=== PATIENT | male | born 2000 | race African-American/Black ===

== ENCOUNTER 2023-03-09 16:13 | Emergency (ER) | payer OTHER ==
[2023-03-09 16:29] VITALS: BP 134/84; PULSE 56; RESP 18; TEMP 98; BMI 22.7
== END 2023-03-09 17:00 | disposition home or self-care (01) ==
LOC: FER 16:13
PROC: 09PHXKZ Removal of Nonautologous Tissue Substitute from Right Ear, External Approach (ICD-10-PCS; principal; 2023-03-09)
DX: T16.1XXA Foreign body in right ear, initial encounter (principal)
CPT/HCPCS: 99282-25

== ENCOUNTER 2023-07-24 14:11 | Emergency (ER) | payer OTHER ==
[2023-07-24 14:27] VITALS: BP 126/40; PULSE 53; RESP 20; TEMP 98; BMI 21.9
[2023-07-24] MEDS ORDERED: IBUPROFEN 400 MG TABLET (FP) PO ONE (14:37)
[2023-07-24] MEDS: IBUPROFEN 400 MG TABLET (FP) PO ONE (14:39)
== END 2023-07-24 15:26 | disposition home or self-care (01) ==
LOC: FER 14:11
DX: J02.9 Acute pharyngitis, unspecified (principal); R09.81 Nasal congestion; R05.9 Cough, unspecified; R49.0 Dysphonia; J06.9 Acute upper respiratory infection, unspecified; Z20.822 Contact with and (suspected) exposure to COVID-19
CPT/HCPCS: 0241U-QW; 71046-TC-FY; 87651; 99284-25